=== PATIENT | female | born 1980 | race Caucasian/White ===

== ENCOUNTER 2021-09-21 10:01 | Emergency (ER) | payer OTHER | END 2021-09-21 12:32 | disposition home or self-care (01) | LOC: FER 10:01 | DX: S86.811A Strain of other muscle(s) and tendon(s) at lower leg level, right leg, initial encounter (principal); I10 Essential (primary) hypertension; E66.9 Obesity, unspecified; Z88.0 Allergy status to penicillin; Z88.5 Allergy status to narcotic agent; Z87.891 Personal history of nicotine dependence; X58.XXXA Exposure to other specified factors, initial encounter; Z79.899 Other long term (current) drug therapy | CPT/HCPCS: 73590 ==